=== PATIENT | male | born 1940 | race Caucasian/White ===

== ENCOUNTER 2017-12-14 06:18 | Observation (INO) | payer OTHER ==
[2017-12-11 16:45] VITALS: BP 149/78
[2017-12-11 17:04] LABS: BASOPHILS % (AUTO) 1.1 % (0.0-5.0); EOSINOPHILS % (AUTO) 3.8 % (0.0-8.0); HEMATOCRIT 45.5 % (42-54); LYMPHOCYTES % (AUTO) 14.1 % (21.0-51.0); MEAN CORPUSCULAR HEMOGLOBIN 30.1 pg (27.0-33.0); MEAN CORPUSCULAR HGB CONC 33.9 g/dL (32.0-36.0); MEAN CORPUSCULAR VOLUME 88.9 fL (79-99); MONOCYTES % (AUTO) 8.2 % (3.0-13.0); NEUTROPHILS % (AUTO) 72.8 % (40.0-77.0); PLATELET COUNT (AUTO) 181 K/uL (130-400); RED BLOOD CELL COUNT(AUTO) 5.12 MIL/uL (4.50-6.20); RED CELL DISTRIBUTION WIDTH 15.1 % (11.0-15.5); WHITE BLOOD COUNT (AUTO) 9.8 K/uL (4.8-10.8)
[2017-12-11 17:11] LABS: APPEARANCE,URINE Cloudy (CLEAR); BILIRUBIN,URINE Negative (NEGATIVE); COLOR,URINE Yellow (YELLOW); GLUCOSE, URINE (UA) Negative (NEGATIVE); KETONES,URINE Negative (NEGATIVE); LEUKOCYTE ESTERASE ,URINE Large (NEGATIVE); NITRATE,URINE Negative (NEGATIVE); OCCULT BLOOD,URINE Large (NEGATIVE); PROTEIN,URINE POS 2+ (NEGATIVE)
[2017-12-11 17:28] LABS: BACTERIA,URINE Few /HPF (None Seen); WBC,URINE 26-50 /HPF (0-1)
[2017-12-11 17:29] LABS: MUCUS,URINE Rare LPF (None Seen); SQUAMOUS EPITHELIAL CELL,UR Few /HPF (0-2)
[2017-12-14] VITALS (24 sets, daily range): BP systolic 107–146; BP diastolic 46–90
[~2017-12-14] VITALS: Ht 180.3 cm; Wt 90.3 kg
[2017-12-14] MEDS: CEFTRIAXONE SODIUM 1 GM IVP SCH ×2 (06:00→08:30)
[2017-12-14] MEDS: GENTAMICIN 80 MG/NS 100 ML PB 100 ML IV SCH ×2 (06:00→07:31)
[~2017-12-14 06:18] MED LIST: ASPI-1265 PO; DILT240C50 PO; GLUC500T12 PO; MECL-111 PO; MULT-1258 PO; PHARMACY COMMUNICATION MISC SCH; TAMS0.4C32 PO; [UNRECOGNIZED DRUG - CODE] PO
[2017-12-14] MEDS ORDERED: ONDANSETRON HCL MDV 20ML 2 MG/ML VIAL ONE (06:51)
[2017-12-14] MEDS ORDERED: LIDOCAINE PF 2% 5ML ABBOJECT ONE (06:51)
[2017-12-14] MEDS ORDERED: PHENYLEPHRINE HCL 10 MG/ML 1ML VIAL IV ONE (06:51)
[2017-12-14] MEDS ORDERED: PROPOFOL 10 MG/ML 20ML VIAL IV ONE ×2 (06:52→09:26)
[2017-12-14] MEDS ORDERED: DEXAMETHASONE SOD PHOSPHATE 10MG/ML 1ML VIAL ONE (06:52)
[2017-12-14] MEDS ORDERED: SODIUM CHLORIDE 0.9% 1000ML 1,000 ML IV ONE (06:52)
[2017-12-14] MEDS ORDERED: FENTANYL CITRATE PF 50 MCG/1 ML 2ML VIAL ONE ×2 (06:52→09:08)
[2017-12-14] MEDS ORDERED: FAMOTIDINE/PF 20 MG/2 ML VIAL IV ONE (07:17)
[2017-12-14] MEDS ORDERED: EPHEDRINE SULFATE 50 MG/ML AMPULE ONE (09:11)
[2017-12-14] MEDS ORDERED: ESMOLOL HCL 10 MG/ML 10 ML VIAL ONE (09:43)
[2017-12-14] MEDS ORDERED: METOPROLOL TARTRATE 1 MG/ML 5ML VIAL IV ONE (09:43)
[2017-12-14] MEDS ORDERED: NITROGLYCERIN 0.4 MG SL TAB SL PRN (12:00)
[2017-12-14] MEDS ORDERED: SODIUM CHLORIDE 0.9% 1000ML 1,000 ML IV SCH (12:00)
[2017-12-14] MEDS ORDERED: TRAMADOL HCL 50 MG TABLET PO PRN (12:00)
[2017-12-14] MEDS ORDERED: MORPHINE SULFATE 2 MG/ML 1ML SYG IVP PRN (12:00)
[2017-12-14] MEDS ORDERED: NITR0.4T50 SL (12:29)
[2017-12-14 15:30] LABS: CREATINE KINASE MB 0.8 ng/mL (0.5-3.6); CREATINE KINASE, TOTAL 63 U/L (21-232); MYOGLOBIN 51 ng/mL (10-92); TROPONIN I < 0.04 ng/mL (0.00-0.06)
[2017-12-14] MEDS ORDERED: BACITRACIN 28.4 GM OINT TP SCH (21:00)
[2017-12-14] MEDS: DOCUSATE SODIUM 100 MG CAP PO SCH (21:29)
[2017-12-15 03:00] VITALS: BP 133/58
[2017-12-15 08:00] VITALS: BP 151/72
[2017-12-15] MEDS ORDERED: CEFTRIAXONE SODIUM 1 GM IVP SCH (08:00)
[2017-12-15] MEDS: DOCUSATE SODIUM 100 MG CAP PO SCH (08:36)
[2017-12-15] MEDS ORDERED: ASPIRIN 81MG TAB.CHEW PO SCH (09:00)
[2017-12-15 11:00] VITALS: BP 148/68
== END 2017-12-15 12:33 | disposition home or self-care (01) ==
LOC: DAH 06:18 → DAHIP 06:19 → 3BH 11:06
PROVIDERS: ADMIT Urology; ATTEND Urology
DX: N21.0 Calculus in bladder (principal); I25.118 Atherosclerotic heart disease of native coronary artery with other forms of angina pectoris; I25.2 Old myocardial infarction; N40.0 Benign prostatic hyperplasia without lower urinary tract symptoms; Z91.14 Patient's other noncompliance with medication regimen; Z95.1 Presence of aortocoronary bypass graft; Z88.8 Allergy status to other drugs, medicaments and biological substances
CPT/HCPCS: 36415 ×2; 52317; 80048; 81001; 82360; 82550; 82553; 83874; 84484 ×2; 85025; 87088; 88300; 93005 ×2; 96365; 96375; A4218 ×2; A4354; A4358; A4600; G0378 ×30; J0696 ×2; J1580; J2001; J2370; J2704 ×2; J3010 ×2; J3490 ×4; J7030 ×3; J1100